=== PATIENT | male | born 1945 | race Caucasian/White ===

== ENCOUNTER → 2023-10-02 08:50 | Outpatient (REF) | payer MEDICARE, OTHER, SELFPAY | LOC: RAD 08:50 | PROVIDERS: ATTENDING PHYSICIAN Internal Medicine Critical Care Medicine; FAMILY PHYSICIAN Family Medicine | DX: J84.10 Pulmonary fibrosis, unspecified (principal) | CPT/HCPCS: 71046 ==

== ENCOUNTER → 2023-12-04 07:54 | Outpatient (REF) | payer MEDICARE, OTHER, SELFPAY ==
[2023-12-04 08:47] LABS: % Basophils 1.2 % (0-2); % Eosinophils 2.5 % (0-6); % Immature Granulocytes 0.4 % (0-0.5); % Lymphocytes 17.6 % (20.5-51.1); % Monocytes 9.2 % (1.7-9.3); % Neutrophils 69.1 % (42.2-75.2); Absolute Basophils 0.1 10^3/uL (0-0.2); Absolute Eosinophils 0.2 10^3/uL (0-0.7); Absolute Lymphocytes 1.5 10^3/uL (1.2-3.4); Absolute Monocytes 0.8 10^3/uL (0.1-0.6); Absolute Neutrophils 5.9 10^3/uL (1.4-6.5); Hematocrit 46.5 % (39.0-52.0); Hemoglobin 15.6 g/dL (13.0-18.0); Mean Corp Hgb Conc. 33.5 g/dL (33.0-37.0); Mean Corpuscular Hgb 32.6 pg (27.0-31.0); Mean Corpuscular Volume 97.1 fL (80.0-94.0); Nucleated Red Blood Cells % 0 % (-); Platelet Count 159 10^3/uL (130-400); Red Blood Cell Count 4.79 10^6/uL (4.70-6.10); Red Cell Dist. Width 12.8 % (11.5-14.5); White Blood Cell Count 8.5 10^3/uL (4.8-10.8)
[2023-12-04 09:36] LABS: Vitamin D, 25-OH*** 44.7 ng/mL (30-80)
[2023-12-04 09:37] LABS: ALT (SGPT) 28 U/L (0-50); AST (SGOT) 35 U/L (17-59); Albumin 4.3 g/dl (3.5-5.0); Alkaline Phosphatase 81 U/L (38-126); Blood Urea Nitrogen 25 mg/dl (9-20); Calcium 9.7 mg/dl (8.4-10.2); Carbon Dioxide 27 mmol/L (22-30); Chloride 106 mmol/L (98-107); Glucose 100 mg/dl (70-99); Potassium 4.4 mmol/L (3.5-5.1); Sodium 139 mmol/L (135-145); Total Bilirubin 0.5 mg/dl (0.2-1.3); Total Cholesterol 133 mg/dl (50-199); Total Protein 7.6 g/dl (6.3-8.2); Triglyceride 67 mg/dl (10-149); Uric Acid 7.5 mg/dl (3.5-8.5); Very Low Density Lipoprotein 13 mg/dl (0-30); eGFR > 60.00
[2023-12-04 09:50] LABS: TSH 2.18 uIU/ml (0.47-4.68)
[2023-12-04 10:09] LABS: Vitamin B12 715 pg/ml (239-931)
[2023-12-04 11:41] LABS: HDL Cholesterol 58 mg/dl; LDL Cholesterol, Calculated 62 mg/dl
== END ==
LOC: REG 07:54
PROVIDERS: ATTENDING PHYSICIAN Podiatrist; FAMILY PHYSICIAN Family Medicine
DX: M10.9 Gout, unspecified (principal); J84.112 Idiopathic pulmonary fibrosis; I25.10 Atherosclerotic heart disease of native coronary artery without angina pectoris; I10 Essential (primary) hypertension; C43.9 Malignant melanoma of skin, unspecified; I25.2 Old myocardial infarction; E78.00 Pure hypercholesterolemia, unspecified; Z79.899 Other long term (current) drug therapy
CPT/HCPCS: 36415; 80053; 80061; 82306; 82607; 84443; 84550; 85025

== ENCOUNTER → 2024-10-04 07:09 | Outpatient (REF) | payer MEDICARE, OTHER, SELFPAY | LOC: RST 07:09 | PROVIDERS: ATTENDING PHYSICIAN Internal Medicine Cardiovascular Disease; FAMILY PHYSICIAN Family Medicine; OTHER PHYSICIAN Internal Medicine Critical Care Medicine | DX: I25.10 Atherosclerotic heart disease of native coronary artery without angina pectoris (principal); J84.10 Pulmonary fibrosis, unspecified; K21.9 Gastro-esophageal reflux disease without esophagitis; R13.10 Dysphagia, unspecified | CPT/HCPCS: 74230; 92611; 93306 ==

== ENCOUNTER → 2024-10-25 07:03 | Outpatient (REF) | payer MEDICARE, OTHER, SELFPAY | LOC: HWRCS 07:03 | PROVIDERS: ATTENDING PHYSICIAN Internal Medicine Cardiovascular Disease; FAMILY PHYSICIAN Family Medicine | DX: I25.10 Atherosclerotic heart disease of native coronary artery without angina pectoris (principal); I42.9 Cardiomyopathy, unspecified | CPT/HCPCS: 78452; 93017; A9500 ==

== ENCOUNTER → 2025-02-07 06:36 | Outpatient (REF) | payer MEDICARE, OTHER, SELFPAY ==
[2025-02-07 08:49] LABS: Glycohemoglobin (HgbA1c) 5.3 % (4.0-5.6)
[2025-02-07 09:14] LABS: ALT (SGPT) 25 U/L (0-50); AST (SGOT) 28 U/L (17-59); Albumin 4.5 g/dl (3.5-5.0); Alkaline Phosphatase 72 U/L (38-126); Blood Urea Nitrogen 22 mg/dl (9-20); Calcium 9.4 mg/dl (8.4-10.2); Carbon Dioxide 25 mmol/L (22-30); Chloride 108 mmol/L (98-107); Glucose 84 mg/dl (70-99); HDL Cholesterol 55 mg/dl; LDL Cholesterol, Calculated 77 mg/dl; Potassium 4.6 mmol/L (3.5-5.1); Sodium 142 mmol/L (135-145); Total Bilirubin 0.9 mg/dl (0.2-1.3); Total Cholesterol 145 mg/dl (50-199); Total Protein 7.6 g/dl (6.3-8.2); Triglyceride 69 mg/dl (10-149); Very Low Density Lipoprotein 13 mg/dl (0-30); eGFR > 60.00
== END ==
LOC: REG 06:36
PROVIDERS: ATTENDING PHYSICIAN Internal Medicine Cardiovascular Disease; FAMILY PHYSICIAN Family Medicine
DX: I10 Essential (primary) hypertension (principal); E78.00 Pure hypercholesterolemia, unspecified; R73.01 Impaired fasting glucose; I25.10 Atherosclerotic heart disease of native coronary artery without angina pectoris
CPT/HCPCS: 36415; 80053; 80061; 83036

== ENCOUNTER 2025-06-05 12:15 | Emergency (ER) | payer MEDICARE, OTHER, SELFPAY ==
[2025-06-05 12:27] VITALS: BP 156/82
[2025-06-05 13:22] VITALS: BMI 21.9
[2025-06-05 14:07] LABS: Hematocrit 43.0 % (39.0-52.0); Hemoglobin 14.9 g/dL (13.0-18.0); Mean Corp Hgb Conc. 34.7 g/dL (33.0-37.0); Mean Corpuscular Volume 93.1 fL (80.0-94.0); Nucleated Red Blood Cells % 0 % (-); Platelet Count 154 10^3/uL (130-400); Red Cell Dist. Width 13.1 % (11.5-14.5)
[2025-06-05 14:23] LABS: Blood Urea Nitrogen 24 mg/dl (9-20); Calcium 9.2 mg/dl (8.4-10.2); Carbon Dioxide 25 mmol/L (22-30); Chloride 106 mmol/L (98-107); Estimated Creatinine Clearance 74 ml/min; Glucose 93 mg/dl (70-99); Potassium 4.5 mmol/L (3.5-5.1); Sodium 140 mmol/L (135-145); eGFR > 60.00
--- NOTE | 2025-06-05 14:25 | ED.GENMED ---
History of Present Illness
General
Chief Complaint: Heart Rate Problem
Source: patient and spouse
Time Seen by Provider: 06/05/25 13:15
History of Present Illness
History of Present Illness:
Note:
CHIEF COMPLAINT(S)
Pulmonary symptoms and concern for extra heartbeats.
HISTORY OF PRESENT ILLNESS
The patient is an 80-year-old male with a history of previous cardiac evaluations, presenting with cough. States that he went to urgent care and he was advised to come here for evaluation due to PVCs found on the EKG. The patient reports noticing
extra heartbeats ('extra beats') which were noted during a visit to PCP. He denies current palpitations or chest pain but mentions occasional coughing primarily in the mornings. He has not experienced a significant increase in the frequency of these
symptoms. The patients cardiology follow-up is scheduled for next month. He is generally well and denies feeling unwell. There are no symptoms of chest discomfort during the visit. Discussion included reassurance about the benign nature of premature
ventricular contractions (PVCs) unless associated with other abnormalities such as electrolyte imbalances.
Additional historian
states patient has an appointment with pulmonology next week
SOCIAL DETERMINANTS AFFECTING HEALTH
Patient is frequently outdoors, leading to possible over-exposure to allergens.
REVIEW OF SYSTEMS
- Cardiovascular: Denies current palpitations or chest pain.
- Respiratory: Occasional coughing, mainly in the mornings.
- General: No significant change in health status; feels well overall.
PHYSICAL EXAM
General: Alert, no acute distress.
Skin: Warm, dry.
Head: Normocephalic, atraumatic.
Neck: Supple, trachea midline.
Eye Ears, Nose, Mouth and Throat: Oral mucosa moist.
Cardiovascular: Regular heart rate, no murmurs, normal sinus rhythm on monitor, without PVCs.
Respiratory: Lungs clear on auscultation bilaterally.
Gastrointestinal: Abdomen nondistended.
Back: Normal range of motion, normal alignment.
Musculoskeletal: Normal range of motion, normal strength.
Neurological: Alert and oriented to person, place, time, and situation, no focal neurological deficit observed.
Psychiatric: Cooperative, appropriate mood & affect.
PROBLEM LIST
Acute Problems:
- Pulmonary symptoms, predominantly coughing in the mornings.
- Noted extra heartbeats during a previous cardiology evaluation.
PLAN
1. Conduct basic laboratory tests to assess for electrolyte imbalances.
2. Perform a chest X-ray to rule out any underlying pulmonary conditions.
3. Consider trial of [id number] antihistamines such as Montse or Claritin, given the patients frequent exposure to outdoor allergens.
4. 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
DIFFERENTIAL DIAGNOSIS
The Differential Diagnosis includes, in no particular order and is not limited to:
1. Allergic rhinitis contributing to pulmonary symptoms.
2. Exercise-induced pulmonary issues.
3. Premature ventricular contractions.
4. Electrolyte imbalances.
5. Upper respiratory tract infection.
6. Asthma.
7. Chronic obstructive pulmonary disease.
8. Heart rhythm disorders.
9. Heart failure.
10. Pneumonia.
Disposition:
SUMMARY OF ENCOUNTER
The patient is an 80-year-old male who presented to the emergency department at the advice of urgent care due to observation of premature ventricular contractions (PVCs) on an electrocardiogram (EKG). The patient is asymptomatic regarding chest pain
or palpitations but reports a chronic cough, which he attributes to his known history of pulmonary fibrosis. 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 In the emergency department, the patients clinical
examination revealed rare PVCs. Basic Metabolic Panel (BMP) and Complete Blood Count (CBC) were normal. A chest X-ray indicated no acute changes but showed chronic pulmonary fibrosis. EKG performed showed few PVCs but was otherwise consistent with
normal sinus rhythm.
ASSESSMENT
The patients symptoms and test results are consistent with chronic pulmonary fibrosis and asymptomatic PVCs, which do not appear to require acute intervention.
PLAN
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
INDEPENDENT REVIEW OF LABS AND INTERPRETATION OF TESTS
My independent review of BMP is normal.
My independent review of CBC is normal.
My independent interpretation of the chest X-ray shows no acute findings but restricted evidence of chronic pulmonary fibrosis.
My independent interpretation of the EKG indicates few PVCs but otherwise normal sinus rhythm.
MEDICAL DECISION MAKING
-Complexity of Data Reviewed: Chronic conditions affecting care, including history of pulmonary fibrosis and asymptomatic PVCs. Differential diagnosis considerations included allergic rhinitis, exercise-induced pulmonary issues, premature
ventricular contractions, electrolyte imbalances, upper respiratory tract infection, asthma, chronic obstructive pulmonary disease, heart rhythm disorders, heart failure, and pneumonia.
-Data:
Category 1
The emergency department obtained and reviewed BMP, CBC, chest X-ray, and EKG results. These supported the diagnosis of chronic pulmonary fibrosis and PVCs without acute findings.
-Risk:
Prescription medication was not prescribed, and outpatient management is deemed safe due to the patients stable condition and reassurance from normal test results.
Consideration of Admission/Observation: Escalation of care including admission/observation was considered given the complexity and risk of the patients presenting complaint, exam findings, and his underlying comorbidities. However, ultimately, the
patient is considered safe for outpatient management with close follow-up. Reasoning: Work-up is reassuring, it does not reveal any acute life/organ threatening processes, patients symptoms are well controlled upon reevaluation, reexamination is
reassuring, vitals are stable, patient is agreeable with discharge, and reliable for follow-up.
Care significantly affected by Social Determinants of Health: Frequent exposure to outdoor allergens due to working environment.
DIAGNOSIS
1. Pulmonary fibrosis, chronic (ICD-10: J84.10)
2. Premature ventricular contractions, asymptomatic (ICD-10: I49.3)
Past History
Social History
Tobacco: Non-smoker
Employment: Employed
Phy Exam
Physical Exam
Physical Exam:
.
Course
Orders/Labs/Results
Orders:
Orders
06/05/25 12:29
ECG [Electrocardiogram (*1)] Urgent
Reason for Study: Palpitations
EKG- Treatment ONCE
06/05/25 13:28
CR Chest - 2 Views Urgent
Comment:
Reason For Exam: cough, h/o pulm fib
06/05/25 13:57
Basic Metabolic Panel Urgent
Complete Blood Count/With Diff Urgent
Abnormal Lab Results
06/05/25
13:57
RBC 4.62 L 10^6/uL
(4.70-6.10)
MCH 32.3 H pg
(27.0-31.0)
MPV 11.6 H fL
(7.4-10.4)
Absolute Monos (auto) 1.0 H 10^3/uL
(0.1-0.6)
Lymphocytes % 18.7 L %
(20.5-51.1)
Monocytes % 12.6 H %
(1.7-9.3)
BUN 24 H mg/dl
(9-20)
06/05/25 13:57
06/05/25 13:57
Vital Signs
Initial and Last Documented VS:
Initial Vital Signs
Temp Pulse Resp BP Pulse Ox
98.7 F 86 18 156/82 96
06/05/25 12:27 06/05/25 12:27 06/05/25 12:27 06/05/25 12:27 06/05/25 12:27
Last Documented Vital Signs
Temp Pulse Resp BP Pulse Ox
98.7 F 79 29 156/82 96
06/05/25 12:27 06/05/25 14:00 06/05/25 14:00 06/05/25 12:27 06/05/25 14:31
*Pulse Oximetry
SaO2: 96
Oxygen Mode of Delivery: Room air
Patient hypoxic: no
*EKG
Interpreted by ED Provider?: Yes
Interpretation: abnormal
Rate: normal
Rhythm: sinus and PVC's
[place]: normal axis
Interval: normal interval
QRS Pattern: normal QRS
Ischemia: no ischemia
*Horse Racing Analyst Interpretation
Rate: normal
Interpretation: normal
Rhythm: sinus
*Critical Care Note
Total Time (30-74mins, 75-104mins- exclusive of procedures): Not Applicable
ED Attending Note
-
Portions of this chart may have been created with voice recognition software.� Occasional wrong word or��sound alike� substitutions may have occurred due to the inherent limitations of voice recognition software.
Discharge Plan
Departure
Patient Disposition: Home (Routine Discharge)
Date of Disposition: 06/05/25
Time of Disposition: 14:25
Patient with high blood pressure during this ER visit?: Yes
Discharge Problem:
Asymptomatic premature ventricular contractions, Chronic fibrosis of lung
Instructions: Ventricular premature beats, BLOOD PRESSURE
Prescriptions:
No Action
tramadol 50 MG tablet
25 - 50 mg PO Q6HPRN PRN (Reason: severe pain/breakthrough pain) Qty: 10 0RF
Referrals:
UNKNOWN - PT DOES,NOT KNOW [Family Provider]
Activity Restrictions/Additional Instructions:
Consider taking daily antihistamines as discussed. Please see your armature rewinder as planned in the next 1 week. Return today for fevers, shortness of breath, lightheadedness, passing out episode or any other concerns.
Interventions
Interventions:
*Risk Screen - Suicide Last Done: 06/05/25 12:27
*General Assessment Last Done: 06/05/25 13:22
*Neglect/Abuse Screening Last Done: 06/05/25 13:22
*ED- Fall Risk Assessment Last Done: 06/05/25 14:43
*ED COVID-19 Vaccine History Last Done: 06/05/25 13:22
*ED Influenza Vaccine History Last Done: 06/05/25 13:22
*Nursing Disposition Last Done: 06/05/25 14:43
ED- Cardiac Assessment Last Done: 06/05/25 13:22
ED- Pulmonary Assessment Last Done: 06/05/25 13:22
Discharge Date and Time
Discharge Date/Time: 06/05/25 14:44
Print Language: KHMER
== END 2025-06-05 14:44 | disposition home or self-care (01) ==
LOC: EMR 12:15
PROVIDERS: EMERGENCY PHYSICIAN Emergency Medicine
DX: J84.10 Pulmonary fibrosis, unspecified (principal); I49.3 Ventricular premature depolarization
CPT/HCPCS: 99285; 71046; 80048; 85025; 93005

== ENCOUNTER → 2025-06-23 08:40 | Outpatient (REF) | payer MEDICARE, OTHER, SELFPAY ==
[2025-06-23 09:45] LABS: Hematocrit 43.1 % (39.0-52.0); Hemoglobin 14.5 g/dL (13.0-18.0); Mean Corp Hgb Conc. 33.6 g/dL (33.0-37.0); Mean Corpuscular Volume 94.9 fL (80.0-94.0); Nucleated Red Blood Cells % 0 % (-); Platelet Count 195 10^3/uL (130-400); Red Cell Dist. Width 12.7 % (11.5-14.5)
[2025-06-23 12:13] LABS: ALT (SGPT) 19 U/L (0-50); AST (SGOT) 29 U/L (17-59); Albumin 4.0 g/dl (3.5-5.0); Alkaline Phosphatase 72 U/L (38-126); Blood Urea Nitrogen 21 mg/dl (9-20); Calcium 9.0 mg/dl (8.4-10.2); Carbon Dioxide 26 mmol/L (22-30); Chloride 102 mmol/L (98-107); Glucose 95 mg/dl (70-99); HDL Cholesterol 39 mg/dl; LDL Cholesterol, Calculated 61 mg/dl; Potassium 4.2 mmol/L (3.5-5.1); Sodium 139 mmol/L (135-145); Total Protein 7.3 g/dl (6.3-8.2); Very Low Density Lipoprotein 16 mg/dl (0-30); eGFR > 60.00
[2025-06-23 12:40] LABS: Vitamin D, 25-OH*** 37.5 ng/mL (30-80)
[2025-06-23 12:54] LABS: PSA, Total - Screen 4.79 ng/ml (0.0-4.0); TSH 2.09 uIU/ml (0.47-4.68)
[2025-06-23 13:10] LABS: Glycohemoglobin (HgbA1c) 5.7 % (4.0-5.9)
[2025-06-23 13:11] LABS: Vitamin B12 848 pg/ml (239-931)
== END ==
LOC: REG 08:40
PROVIDERS: ATTENDING PHYSICIAN Family Medicine
DX: I10 Essential (primary) hypertension (principal); E78.00 Pure hypercholesterolemia, unspecified; R35.1 Nocturia; N40.1 Benign prostatic hyperplasia with lower urinary tract symptoms; Z79.899 Other long term (current) drug therapy; Z12.5 Encounter for screening for malignant neoplasm of prostate
CPT/HCPCS: 36415; 80053; 80061; 82306; 82607; 83036; 84443; 85025; G0103

== ENCOUNTER → 2025-06-27 11:35 | Outpatient (REF) | payer MEDICARE, OTHER, SELFPAY | LOC: HWRAD 11:35 | PROVIDERS: ATTENDING PHYSICIAN Internal Medicine Critical Care Medicine; FAMILY PHYSICIAN Family Medicine | DX: J84.10 Pulmonary fibrosis, unspecified (principal) | CPT/HCPCS: 71250 ==

== ENCOUNTER 2025-08-14 18:58 | Inpatient (IN) | payer MEDICARE, OTHER, SELFPAY ==
[2025-08-14 17:00] VITALS: BP 144/79
[2025-08-14 17:06] VITALS: BP 144/79
[2025-08-14 17:15] LABS: Hematocrit 43.8 % (39.0-52.0); Hemoglobin 15.1 g/dL (13.0-18.0); Mean Corp Hgb Conc. 34.5 g/dL (33.0-37.0); Mean Corpuscular Volume 92.0 fL (80.0-94.0); Nucleated Red Blood Cells % 0 % (-); Platelet Count 142 10^3/uL (130-400); Red Cell Dist. Width 13.9 % (11.5-14.5)
[2025-08-14 17:31] LABS: COVID-19 Antigen Negative (Negative)
--- NOTE | 2025-08-14 17:33 | ED.GENMED ---
History of Present Illness
General
Chief Complaint: Weakness
Source: patient, spouse and ambulance crew
Exam Limitations: none
Time Seen by Provider: 08/14/25 17:31
Nursing documentation reviewed up to this point in time: agreed with
History of Present Illness
History of Present Illness:
80-year-old male presents emergency department due to weakness and cough. He has had worsening weakness throughout the day. It did begin somewhat yesterday. He denies any fevers. He has a history of pulmonary fibrosis, and is not usually on
oxygen. He has not been hospitalized for it per patient and .
Past History
Past History
ED Past Medical History: HTN, Hypercholesterolemia and Other (Pulmonary fibrosis)
ED Past Surgical History: Cardiac (Cardiac stent) and Orthopedic (Left shoulder)
Social History
Tobacco: Former smoker
Alcohol: Daily
Drug: None
Personal:
Living: with family
Employment: Employed
Review of Systems
Review of Systems
Allergies reviewed?: Yes
All Other Systems: Not applicable
Constitutional: Reports no symptoms
EENT: Reports no symptoms
Respiratory: Reports cough and trouble breathing
Cardiac: Reports no symptoms
ABD/GI: Reports no symptoms
: Reports no symptoms
Musculoskeletal: Reports no symptoms
Skin: Reports no symptoms
Neurological: Reports weakness
Endocrine: Reports no symptoms
Hematologic/Lymphatic: Reports no symptoms
Psychiatric: Reports no symptoms
Phy Exam
Physical Exam
Physical Exam:
Physical Exam
General: afebrile, appears uncomfortable
Neck: supple. no meningeal signs. normal posterior pharynx
Heart: s1/s2 regular rate and rhythm, no murmur. equal radial
pulses.
HEENT: Pupils equal round reactive to light, EOMI
Lungs: mild respiratory distress. clear bilaterally, cough
Abdomen: normal bowel sounds. not tender. no CVAT
Neuro: alert and oriented. no focal neurological deficits cranial nerves II through XII intact
Skin: no rash
Psychiatric: well kept. interactive and cooperative
Extremities: no edema. no calf tenderness. negative homans. good distal pulses
Course
Orders/Labs/Results
Orders:
Orders
08/14/25 Dinner
Cholesterol Lowering
At Your Request: Full Participation
08/14/25 17:02
Electrocardiogram (*1) Urgent
Reason for Study: Shortness of Breath
EKG- Treatment ONCE
CR Chest - 2 Views Urgent
Comment:
Reason For Exam: weakness, hypoxia
08/14/25 17:05
COVID-19 Antigen Urgent
Source: Nasal Swab
Complete Blood Count/With Diff Urgent
Comprehensive Metabolic Panel Urgent
Pro-BNP [NT-proBNP] Urgent
Influenza A+B Rapid Molecular Urgent
MARY ELLEN Source: Nasal Swab
Specimen Description:
08/14/25 17:50
IV Insert/Care/Rem.- Treatment PRN
0.9% Sodium Chloride 1000 ml [Nss] 1,000 ml IV BOLUS
Oseltamivir Phosphate [Tamiflu] 75 mg PO NOW STA
08/14/25 18:04
Admit/Transfer Patient As Directed
Co-Sign Provider:
Level of Care: Inpatient admission
Assign to:: Medical/Surgical
Physician / Group: Lauren
Diagnosis: Acute hypoxia, Influenza
Reason for Hospitalization: Oxygen, Tamiflu, PT
Expected length of stay greater than two midnights?: Yes
ELOS- Estimated Length of Stay in days: 2
I certify the patient meets the requirements for IP care: Yes
PRN Pain Medication Management As Directed
May give lesser potent ordered pain med per pt: Yes
preference::
Protocol:: Medication orders for pain may be administered in a
manner that supports deferring to patient preference
when the pt is:
- Requesting an ordered lesser potent pain medication.
Least to most potent pain medications are defined
as: acetaminophen < NSAID < tramadol < opioids
(morphine, oxycodone, hydromorphone).
- Requesting a lesser dose of the same medication IF
ORDERED.
- Requesting a less intrusive route of administration
if both routes are prescribed by the provider (PO <
IV).
08/14/25 18:05
Code Status As Directed
Resuscitation Status: Full Code
08/14/25 18:23
Acetaminophen [Tylenol] 650 mg .ROUTE .STK-MED ONE
08/14/25 18:24
Acetaminophen [Tylenol] 650 mg PO NOW STA
08/14/25 19:29
Acetaminophen [Tylenol] 650 mg PO Q6HPRN PRN
08/14/25 19:29
Activity As Directed
Activity Level: With Assistance
Ot Eval And Treat Routine
Pt Eval And Treat Routine
Activity Level: Ambulate
DX Deep Vein Thrombosis Video Routine
08/14/25 20:00
Metoprolol Xl [Toprol Xl] 25 mg PO BID
08/15/25 08:00
Aspirin Low Dose EC [Aspir Low (Enteric Coated)] 81 mg PO DAILY
Azithromycin [Zithromax] 250 mg PO MOWEFR
Magnesium Oxide 400 mg PO DAILY
Multivitamin [Theragran] 1 tablet PO DAILY
Oseltamivir Phosphate [Tamiflu] 75 mg PO BID
Pantoprazole [Protonix] 40 mg PO DAILY
Valsartan [Diovan] 160 mg PO DAILY
08/15/25 18:00
Enoxaparin Sodium [Lovenox] 40 mg SC QPM
Rosuvastatin Calcium [Crestor] 40 mg PO QPM
Abnormal Lab Results
08/14/25
17:05
MCH 31.7 H pg
(27.0-31.0)
MPV 11.6 H fL
(7.4-10.4)
Absolute Lymphs (auto) 0.3 L 10^3/uL
(1.2-3.4)
Absolute Monos (auto) 0.9 H 10^3/uL
(0.1-0.6)
Neutrophils % 83.5 H %
(42.2-75.2)
Lymphocytes % 3.7 L %
(20.5-51.1)
Monocytes % 11.7 H %
(1.7-9.3)
Sodium 133 L mmol/L
(135-145)
Glucose 145 H mg/dl
(70-99)
08/14/25 17:05
08/14/25 17:05
Vital Signs
Initial and Last Documented VS:
Initial Vital Signs
BP
144/79
08/14/25 17:00
Last Documented Vital Signs
Temp Pulse Resp BP Pulse Ox
99.1 F 86 18 135/76 100
08/14/25 23:30 08/14/25 23:30 08/14/25 23:30 08/14/25 23:30 08/14/25 23:30
MDM/Problems Addressed
Differential Diagnosis Includes:
Pneumonia, influenza
MDM/Problems Addressed:
80-year-old male with hypoxia, pulmonary fibrosis, influenza A. Weakness. Admit to hospitalist for further treatment.
Chronic conditions affecting care: Other (Pulmonary fibrosis)
Acute Exacerbation and/or Progression of Chronic Illness: Other (Pulmonary fibrosis)
*Radiology
Radiology exam reviewed: radiology read reviewed (cxr: bibasilar pneumonia)
*Pulse Oximetry
SaO2: 95
Nasal Cannula flow liters per minute: 2
Oxygen Mode of Delivery: Room air
Patient hypoxic: yes
*Critical Care Note
Total Time (30-74mins, 75-104mins- exclusive of procedures): Not Applicable
ED Attending Note
-
Portions of this chart may have been created with voice recognition software.� Occasional wrong word or��sound alike� substitutions may have occurred due to the inherent limitations of voice recognition software.
Discharge Plan
Departure
Patient Disposition: Admit
Date of Disposition: 08/14/25
Time of Disposition: 17:52
Admit to: Telemetry
Presentation/result/management discussed w/ accepting MD/DO: Hospitalist
Patient with high blood pressure during this ER visit?: Yes
Condition: Fair
Discharge Problem:
Influenza A, Hypoxia, Weakness
Interventions
Interventions:
*General Assessment Last Done: 08/14/25 17:06
*Neglect/Abuse Screening Last Done: 08/14/25 17:06
*ED COVID-19 Vaccine History Last Done: 08/14/25 19:22
*ED Influenza Vaccine History Last Done: 08/14/25 17:06
[facility] Fall Risk Assessment Tool Last Done: 08/14/25 17:22
*Risk Screen - Suicide (C-SSRS) Last Done: 08/14/25 17:06
*Nursing Disposition Last Done: 08/14/25 19:22
ED- Cardiac Assessment Last Done: 08/14/25 17:22
ED- Neurological Assessment Last Done: 08/14/25 17:22
ED- Pulmonary Assessment Last Done: 08/14/25 17:22
Discharge Date and Time
Discharge Date/Time: 08/14/25 19:22
[2025-08-14 17:35] LABS: ALT (SGPT) 22 U/L (0-50); AST (SGOT) 40 U/L (17-59); Albumin 4.5 g/dl (3.5-5.0); Alkaline Phosphatase 71 U/L (38-126); Blood Urea Nitrogen 18 mg/dl (9-20); Calcium 9.6 mg/dl (8.4-10.2); Carbon Dioxide 25 mmol/L (22-30); Chloride 100 mmol/L (98-107); Glucose 145 mg/dl (70-99); Potassium 4.5 mmol/L (3.5-5.1); Sodium 133 mmol/L (135-145); Total Protein 8.1 g/dl (6.3-8.2); eGFR > 60.00
[2025-08-14 18:00] VITALS: BP 143/76
--- NOTE | 2025-08-14 18:09 | HPS.HSE ---
Family Physician
-
Family Physician:
Chief Complaint
-
Weakness, cough, shortness of breath
History of Present Illness
80-year-old male here accompanied by his for complaints of increasing cough, shortness of breath, weakness. Symptoms started on Friday.
Patient himself is a very limited and poor historian. Information gathered by speaking with his .
Medical History
Past Medical History
Past Medical History: Reports Other
Additional Past Medical History:
Idiopathic pulmonary fibrosis
CAD
Inferior wall HI
Umbilical hernia�repaired with mesh
BPH
Essential hypertension
Osteoarthritis
GERD
Hyperlipidemia
Malignant melanoma
Anxiety/depression
Past Surgical History: Reports Appendectomy, Orthopedic and Other
Additional Past Surgical History:
Open left inguinal hernia repair with mesh
Pilonidal cyst
Left shoulder surgery
Left hand carpal tunnel repair
Social History
Tobacco: Former Smoker
Alcohol: Occasional
Drug: None
Personal:
Living: With Family
Employment: Not Employed
Family History
Family History: Not pertinent
Allergies / Home Medications
Allergies reflects when Allergies were last updated in [employer].
Home Medications with original date entered in [employer]
Allergy/Medication List:
Allergies
Allergy/AdvReac Type Severity Reaction Status Date / Time
No Known Allergies Allergy Verified 08/14/25 17:03
Home Medications
Rosuvastatin 40 mg daily
Multivitamin 1 tablet daily
Toprol XL 25 mg twice daily
Azithromycin 250 mg 1 tab Friday
Aspirin 81 mg daily
Valsartan/HCTZ 160/12.51 tablet daily
Magnesium 500 mg once daily
Omeprazole 20 mg daily
Review of Systems
-
History Source: Patient and Family
A 12 point ROS was completed and negative except as noted: Yes
Constitutional: Reports Fatigue
Respiratory: Reports Cough and Trouble Breathing
Physical Exam
Vital Signs
Vital Signs
Temp Pulse Resp BP Pulse Ox
98.6 F 94 24 144/79 95
08/14/25 17:06 08/14/25 17:15 08/14/25 17:15 08/14/25 17:06 08/14/25 17:45
Physical Exam
General: Well Developed, Well Nourished, No Apparent Distress and Comfortable
HEENT: NormoCephalic, Anicteric and Moist mucous membranes
Respiratory: Rhonchi
Cardiac: S1/S2 and Regular Rhythm
GI: Soft, Non Tender and Non Distended
Genito-urinary: Deferred by me
Musculoskeletal: No Clubbing, No Cyanosis and No Edema
Skin: Warm and Dry
Neuro: Awake, Alert and Nonfocal/grossly intact
Hematologic/Lymphatic: No Lymphadenopathy
Psych: Calm
Laboratory Results
-
08/14/25 17:05
08/14/25 17:05
Laboratory Results
Total Bilirubin 0.8 mg/dl (0.2-1.3) 08/14/25 17:05
AST 40 U/L (17-59) 08/14/25 17:05
ALT 22 U/L (0-50) 08/14/25 17:05
Alkaline Phosphatase 71 U/L (38-126) 08/14/25 17:05
Impression/Plan
-
Acute hypoxic respiratory failure -due to acute influenza infection in the setting of chronic interstitial lung disease. Oxygenation is currently stable on 2 L nasal cannula. Not on oxygen at home.
Admit to MedSurg.
Acute influenza A infection -unclear why he is not vaccinated. Initiate Tamiflu. Recommend vaccination yearly in May, discussed with .
CAD -with history of HI and prior stenting. Continue GDMT.
Hyponatremia -stop hydrochlorothiazide.
Essential hypertension -resume home meds with the exception of hydrochlorothiazide.
Interstitial lung disease -follows with Dr. Ratliff.
Hyperlipidemia -rosuvastatin.
History of melanoma
BPH
GERD
Former smoker
Depression/anxiety
Full code
Updated at the bedside.
[2025-08-14] MEDS: TAMIFLU 75 MG PO (18:16)
[2025-08-14] MEDS: NSS 1000 IV (18:17)
[2025-08-14] MEDS: TYLENOL 650 MG PO (18:24)
[2025-08-14 19:40] VITALS: BP 135/76; BMI 22.5
--- NOTE | 2025-08-14 19:53 | PTCARENOTE ---
Pt arrived to unit AAO3, ambulated from stretcher to bed with RW, steady gait, on bed alarm, call swift in reach, bed locked, in lowest position, cooperative with admit process.
[2025-08-14] MEDS: TOPROL XL 25 MG PO (21:23)
[2025-08-14 23:30] VITALS: BP 135/76
--- NOTE | 2025-08-15 08:21 | W.PN.HOSP.TC ---
Addendum entered and electronically signed by Heriberto Mcpherson MD 08/15/25 15:34:
Updated over the phone today. She asks for pulm eval and reassured her we asked for consult.
Original Note:
Today's Communication/Plan
-
Pulmonary eval
Assessment / Plan
Assessment / Plan
Physical exam:
General: Acutely ill
HEENT: Normocephalic, Atraumatic and Moist Mucous Membranes
Respiratory: Coarse rhonchi; Negative Wheezes, Rales
Cardiac: Regular Rhythm and S1/S2
GI: Soft, Nontender and Nondistended
Musculoskeletal: No Clubbing, No Cyanosis and No Edema
Neuro: Awake, Alert and Oriented, no neurological deficit
Psych: Calm
A/P:
Acute hypoxic respiratory failure -due to acute influenza infection in the setting of chronic interstitial lung disease. Oxygenation is currently stable on 2 L nasal cannula. Not on oxygen at home.
Pulmonary consult.
Acute influenza A infection -unclear why he is not vaccinated. Continue Tamiflu. Dr. Aguilar recommended vaccination yearly in May, discussed with .
CAD -with history of NH and prior stenting. Continue GDMT.
Hyponatremia -stop hydrochlorothiazide. Follow-up sodium
Essential hypertension -resume home meds with the exception of hydrochlorothiazide.
Interstitial lung disease -follows with Dr. Ratliff.
Hyperlipidemia -rosuvastatin.
History of melanoma
BPH
GERD
Former smoker
Depression/anxiety
Full code
Total time spent on today's encounter was 36 minutes which included time spent in counseling the patient/family regarding diagnosis and treatment plan as listed above, goals of care, and symptom management. Case was discussed with nursing staff,
specialists, and care coordinators/case management. All labs and imaging personally reviewed by me. Remainder the time spent in detailed review of previous records, lab data, imaging, and other medical provider documentation.
Anticipated Discharge: 24 - 48 hours
Subjective/Interval History
-
Date of Service: August 15, 2025
Patient continues to have cough and shortness of breath. Afebrile
Objective Data
-
Vital Signs:
Vital Signs
Temp Pulse Resp BP Pulse Ox
99.1 F 86 18 135/76 100
08/14/25 23:30 08/14/25 23:30 08/14/25 23:30 08/14/25 23:30 08/14/25 23:30
I&O
08/14/25 08/15/25 08/16/25
06:59 06:59 06:59
Intake Total 240 / 240
Output Total 200 / 200 400 / 400
Balance -200 / -200 -160 / -160
[2025-08-15 08:50] VITALS: BP 137/81
[2025-08-15] MEDS: THERAGRAN 1 TABLET PO (09:05)
[2025-08-15] MEDS: PROTONIX 40 MG PO (09:06)
[2025-08-15] MEDS: DIOVAN 160 MG PO (09:06)
[2025-08-15] MEDS: TAMIFLU 75 MG PO ×2 (09:06→20:10)
[2025-08-15] MEDS: ZITHROMAX 250 MG PO (09:06)
[2025-08-15] MEDS: MAGNESIUM OXIDE 400 MG PO (09:06)
[2025-08-15] MEDS: TOPROL XL 25 MG PO ×2 (09:06→20:10)
[2025-08-15] MEDS: ASPIR LOW (ENTERIC COATED) 81 MG PO (09:07)
[2025-08-15 09:24] VITALS: BP 132/68; PULSE 74; O2SAT 94
[2025-08-15 09:25] VITALS: BP 132/68; PULSE 80; O2SAT 97
--- NOTE | 2025-08-15 11:27 | CON.PUL ---
Consultation
Consultation Request
Date/Time Consultation Requested: 08/15/2025 - 1001
Date/Time Consultation Performed: 08/15/2025 - 1100
Requesting Provider: Dr. Mcpherson
Performing Provider: Dr. Shultz
Reason for Consultation: SOB/Flu A
Medical History
-
Chief Complaint: Weakness + cough
History of Present Illness:
80-year-old male former tobacco smoker with a past medical history of pulmonary fibrosis, chronic cough, GERD, hypertension, anxiety, depression, ICM, CAD with history of PCI/stents to RCA/PDA (2006), BPH, DJD, and history of malignant melanoma who
presents with cough, weakness and shortness of breath. His symptoms started the day prior, and continued to worsen. Patient is a poor historian so information gathered by chart. In the ER patient was afebrile, pulse rate 99, respiratory rate 26,
BP 144/79 and he was saturating 92% on room air. Patient is not usually on oxygen at home. Patient found to be influenza A positive on flu swab. Other pertinent labs showed a serum sodium of 133, proBNP 1520, and COVID-19 antigen negative. CXR
showed concern for bibasilar pneumonia (L >R) superimposed on chronic interstitial lung disease. Patient was given 1 L NS 0.9% in the ER + Tylenol and Tamiflu, and admitted to the Hospitalist service. Pulmonary service now consulted for additional
management/recommendations.
PMHx: Pulmonary fibrosis, chronic cough, GERD, hypertension, anxiety, depression, ICM, CAD with history of PCI/stents to RCA/PDA (2006), BPH, DJD, history of malignant melanoma
PSHx: Coronary cath, appendectomy, shoulder surgery, pilonidal cyst, open left inguinal hernia repair with mesh, left hand carpal tunnel surgery
Past Medical History
Past Medical History: Other (Above as per HPI)
Past Surgical History: Other (Above as per HPI)
Social History
Tobacco: Former Smoker ([id number] history, quit in 1977)
Alcohol: Occasional
Drug: None
Personal:
Living: With Family
Family History
Family History: Other (Mother: Alzheimer's dementia; daughter: Liver transplant (unknown reason))
Allergies / Home Medications
Allergies
Allergy/AdvReac Type Severity Reaction Status Date / Time
No Known Allergies Allergy Verified 08/14/25 17:03
Home Medications
�Medication �Instructions �Recorded �Confirmed �Last Taken �Type
aspirin 81 mg tablet 81 mg PO DAILY Blood Clot 08/14/25 08/14/25 Unknown History
Prevention/Tx
azithromycin 250 mg tablet 250 mg PO MOWEFR Infection 08/14/25 08/14/25 Unknown History
coenzyme Q10 100 mg capsule 100 mg PO DAILY Supplement 08/14/25 08/14/25 Unknown History
cyanocobalamin (vitamin B-12) 1,000 mcg PO DAILY Supplement 08/14/25 08/14/25 Unknown History
1,000 mcg tablet
doxepin 10 mg/mL oral concentrate 10 mg PO HSPRN PRN sleep 08/14/25 08/14/25 Unknown History
magnesium glycinate 100 mg (as 400 mg PO DAILY Supplement 08/14/25 08/14/25 Unknown History
glycinate) tablet
metoprolol succinate 25 mg 25 mg PO BID Blood Pressure 08/14/25 08/14/25 Unknown History
tablet,extended release 24 hr
omeprazole 20 mg capsule,delayed 20 mg PO DAILY Gastrointestinal 08/14/25 08/14/25 Unknown History
release Issue
rosuvastatin 40 mg tablet 40 mg PO DAILY High Cholesterol 08/14/25 08/14/25 Unknown History
taurine 500 mg capsule 500 mg PO DAILY Supplement 08/14/25 08/14/25 Unknown History
therapeutic multivitamin 1 tab PO DAILY Supplement 08/14/25 08/14/25 Unknown History
valsartan 160 1 tab PO DAILY Blood Pressure 08/14/25 08/14/25 Unknown History
mg-hydrochlorothiazide 12.5 mg
tablet
Review of Systems
-
Unable to Obtain full review of systems at this time due to: Acuity
Vitals / Labs / Diagnostic Testing
Vital Signs
Temp Pulse Resp BP Pulse Ox
99.6 F 92 14 137/81 97
08/15/25 08:50 08/15/25 09:06 08/15/25 08:50 08/15/25 09:06 08/15/25 08:50
Lab Data
08/14/25 17:05
08/14/25 17:05
Microbiology
08/14/25 17:05 Nasal Swab Influenza Types A & B (YI) - Final
Influenza A Positive, NAAT
Diagnostic Testing:
Physical Exam
-
HEENT: Normocephalic and Anicteric
Cardiovascular: S1/S2 and Peripheral Edema (n)
Respiratory: Wheeze (n), Rales (Bilateral), Rhonchi (Bilateral) and Non-Labored Respirations
GI: Soft, Non Distended, Non Tender and Normal Bowel Sounds
Neurology: Awake, Alert and Tremors (n)
Skin: Warm and Dry
General: Respiratory Distress (n), Comfortable, Fever (n) and Chills (n)
Assessment
-
Assessment: 80-year-old male former tobacco smoker with a past medical history of pulmonary fibrosis, chronic cough, GERD, hypertension, anxiety, depression, ICM, CAD with history of PCI/stents to RCA/PDA (2006), BPH, DJD, and history of malignant
melanoma who presents with cough, weakness and shortness of breath. His symptoms started the day prior, and continued to worsen. Patient is a poor historian so information gathered by chart. In the ER patient was afebrile, pulse rate 99,
respiratory rate 26, BP 144/79 and he was saturating 92% on room air. Patient is not usually on oxygen at home. Patient found to be influenza A positive on flu swab. Other pertinent labs showed a serum sodium of 133, proBNP 1520, and COVID-19
antigen negative. CXR showed concern for bibasilar pneumonia (L >R) superimposed on chronic interstitial lung disease. Patient was given 1 L NS 0.9% in the ER + Tylenol and Tamiflu, and admitted to the Hospitalist service. Pulmonary service now
consulted for additional management/recommendations.
Chronic conditions HISTORICAL GUIDE: Pulmonary fibrosis, chronic cough, GERD, hypertension, anxiety, depression, ICM, CAD with history of PCI/stents to RCA/PDA (2006), BPH, DJD, history of malignant melanoma
Impression:
#Influenza A pneumonia
#Acute respiratory failure with hypoxia due to above
#Pulmonary fibrosis (UIP pattern) - worsened interstitial changes compared to prior imaging in September 2021
#CAD with history of stents to RCA/PDA
#Chronic HFrEF (LVEF: 35% via echo on 10/04/2024)
#GERD
#Chronic cough due to ILD
#Anxiety/depression
#History of malignant melanoma
Plan:
- Patient has been experiencing worsening shortness of breath + cough, found to have influenza A with suspected bacterial superinfection likely involving his left lower lobe
- Patient has baseline pulmonary fibrosis with bullous disease
- He is a former tobacco smoker, with a [id number] history, quit in 1977
- Continue with Tamiflu for 5-10 days, depending on his clinical course
- Continue his Zithromax (home medication)
- PPI
- Given his WBC is normal and he is afebrile, hold off on antibiotics for now and continue to closely observe; trend WBC and monitor temperature curve
- If patient spikes fever then would panculture and start broad-spectrum antibiotics at that
- Maintain SpO2 >90-94% with supplemental O2, weaning down as tolerated
- Aspiration precautions, keeping HOB >30-45�
- If O2 requirements worsen, low threshold to start high flow nasal cannula, and would also start broad-spectrum antibiotics in that scenario
- prn nebulized bronchodilators - not currently bronchospastic
- Incentive spirometer encouraged q1hr while awake
- Replete electrolytes with K>4, Mg>2
- Trend H/H and transfuse if needed to keep Hb>7g/dL; keep plt>20k, unless there is concern for bleeding then keep plt>50k
- Maintain euglycemia with goal BG >100 and <180
- PT/OT once he is stable
- DVT ppx: LMWH
Pulmonary service will continue to follow along.
Data:
Transthoracic Echocardiogram 10/04/2024:
Normal left ventricular chamber size. Normal wall thickness. Moderately
reduced left ventricular systolic function. LV ejection fraction is 35%
visually. Global hypokinesis. Stage I diastolic dysfunction suggestive of
abnormal relaxation.
Tricuspid valve opens normally. Mild tricuspid regurgitation. Estimated
pulmonary artery pressure of 37 mmHg. Assuming a right atrial pressure of 3
mmHg.
Since echo 08/26/22 which was reviewed, EF has decreased from 40-45% to 35%.
Total time spent today was 58 minutes for this encounter. Time includes reviewing laboratory test/imaging results, reviewing pertinent medical records, obtaining and reviewing medical history, performing an appropriate exam, ordering medications,
tests and procedures. Time also includes documentation of this encounter, coordinating patient care and communicating with other healthcare professionals. Total time does not include separately billed tests performed on this date of service.
--- NOTE | 2025-08-15 13:16 | CM ---
CM reviewed chart. Patient seen bedside. Initial Assessment completed.
Patient is an 80-year-old male here accompanied by his for complaints of increasing cough, shortness of breath, weakness. Positive for influenza.
Patient lives with in a two story home. Bedroom on first floor. Two steps to enter.
Patient still works and drives.
Patient has no devices. Patient never had home care or nursing.
Patient is currently on O2, but has not used O2 in the past.
to transport home when ready.
PCP is Nas Leyva
Pharmacy is [facility]
Patient has insurance and prescription coverage.
CM to continue to follow for discharge needs.
Plan: discharge home; follow for discharge needs.
[2025-08-15 15:50] VITALS: BP 124/70
[2025-08-15 16:50] VITALS: BP 124/70
[2025-08-15] MEDS: LOVENOX 40 MG SC (17:41)
[2025-08-15] MEDS: CRESTOR 40 MG PO (17:41)
[2025-08-15 23:30] VITALS: BP 143/69
[2025-08-16 07:00] VITALS: BP 138/68
[2025-08-16] MEDS: PROTONIX 40 MG PO (07:54)
[2025-08-16] MEDS: TOPROL XL 25 MG PO ×2 (07:54→20:04)
[2025-08-16] MEDS: MAGNESIUM OXIDE 400 MG PO (07:54)
[2025-08-16] MEDS: DIOVAN 160 MG PO (07:54)
[2025-08-16] MEDS: ASPIR LOW (ENTERIC COATED) 81 MG PO (07:54)
[2025-08-16] MEDS: THERAGRAN 1 TABLET PO (07:55)
[2025-08-16] MEDS: TAMIFLU 75 MG PO ×2 (07:55→20:03)
--- NOTE | 2025-08-16 08:50 | W.PN.HOSP.TC ---
Today's Communication/Plan
-
Tamiflu. Antibiotics.
Assessment / Plan
Assessment / Plan
Physical exam:
General: Acutely ill
HEENT: Normocephalic, Atraumatic and Moist Mucous Membranes
Respiratory: Coarse rhonchi; Negative Wheezes, Rales
Cardiac: Regular Rhythm and S1/S2
GI: Soft, Nontender and Nondistended
Musculoskeletal: No Clubbing, No Cyanosis and No Edema
Neuro: Awake, Alert and Oriented, no neurological deficit
Psych: Calm
A/P:
Acute hypoxic respiratory failure -due to acute influenza infection in the setting of chronic interstitial lung disease. Possible left lower lobe community-acquired pneumonia. Oxygenation is currently stable on 2 L nasal cannula. Not on oxygen at
home. Pulmonary consult appreciated and okay continue with home doses of oral azithromycin for bacterial superimposed infection. Discussed with at bedside today.
Acute influenza A infection -unclear why he is not vaccinated. Continue Tamiflu. Dr. Aguilar recommended vaccination yearly in May, discussed with .
CAD -with history of [place] and prior stenting. Continue GDMT.
Hyponatremia -stop hydrochlorothiazide. Sodium back up to 134 today
Essential hypertension -resume home meds with the exception of hydrochlorothiazide.
Interstitial lung disease -follows with Dr. Ratliff and seen by Dr. Shultz during this hospital stay.
Hyperlipidemia -rosuvastatin.
History of melanoma
BPH
GERD
Former smoker
Depression/anxiety
Full code
Total time spent on today's encounter was 35 minutes which included time spent in counseling the patient/family regarding diagnosis and treatment plan as listed above, goals of care, and symptom management. Case was discussed with nursing staff,
specialists, and care coordinators/case management. All labs and imaging personally reviewed by me. Remainder the time spent in detailed review of previous records, lab data, imaging, and other medical provider documentation.
Anticipated Discharge: Within 24 hours
Subjective/Interval History
-
Date of Service: August 16, 2025
Patient still having some cough and shortness of breath although overall improved. Afebrile
Objective Data
-
Labs:
Laboratory Results
08/16/25
08:26
WBC Pending
Hgb Pending
Hct Pending
Plt Count Pending
Sodium Pending
Potassium Pending
Chloride Pending
Carbon Dioxide Pending
BUN Pending
Creatinine Pending
Glucose Pending
Calcium Pending
Vital Signs:
Vital Signs
Temp Pulse Resp BP Pulse Ox
97.6 F 67 16 138/68 92
08/16/25 07:00 08/16/25 07:54 08/16/25 07:00 08/16/25 07:54 08/16/25 07:00
I&O
08/15/25 08/16/25 08/17/25
06:59 06:59 06:59
Intake Total 1020 / 1020
Output Total 200 / 200 400 / 400
Balance -200 / -200 620 / 620
[2025-08-16 09:07] LABS: Hematocrit 47.9 % (39.0-52.0); Hemoglobin 16.2 g/dL (13.0-18.0); Mean Corp Hgb Conc. 33.8 g/dL (33.0-37.0); Mean Corpuscular Volume 95.2 fL (80.0-94.0); Nucleated Red Blood Cells % 0 % (-); Platelet Count 122 10^3/uL (130-400); Red Cell Dist. Width 13.8 % (11.5-14.5)
[2025-08-16 09:30] LABS: Blood Urea Nitrogen 18 mg/dl (9-20); Calcium 9.0 mg/dl (8.4-10.2); Carbon Dioxide 24 mmol/L (22-30); Chloride 100 mmol/L (98-107); Estimated Creatinine Clearance 79 ml/min; Glucose 80 mg/dl (70-99); Potassium 3.9 mmol/L (3.5-5.1); Sodium 134 mmol/L (135-145); eGFR > 60.00
--- NOTE | 2025-08-16 10:11 | W.PN.PUL3 ---
Today's Communication / Plan
-
Tamiflu
Supportive care
Up OOB as tolerated
Supplemental O2 with goal sats >90%
Home O2 assessment prior to discharge
Pulmonary service will continue to briefly follow along
Assessment
-
Assessment: 80-year-old male former tobacco smoker with a past medical history of pulmonary fibrosis, chronic cough, GERD, hypertension, anxiety, depression, ICM, CAD with history of PCI/stents to RCA/PDA (2006), BPH, DJD, and history of malignant
melanoma who presents with cough, weakness and shortness of breath. His symptoms started the day prior, and continued to worsen. Patient is a poor historian so information gathered by chart. In the ER patient was afebrile, pulse rate 99,
respiratory rate 26, BP 144/79 and he was saturating 92% on room air. Patient is not usually on oxygen at home. Patient found to be influenza A positive on flu swab. Other pertinent labs showed a serum sodium of 133, proBNP 1520, and COVID-19
antigen negative. CXR showed concern for bibasilar pneumonia (L >R) superimposed on chronic interstitial lung disease. Patient was given 1 L NS 0.9% in the ER + Tylenol and Tamiflu, and admitted to the Hospitalist service. Pulmonary service now
consulted for additional management/recommendations.
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
Impression:
#Influenza A pneumonia
#Acute respiratory failure with hypoxia due to above
#Pulmonary fibrosis (UIP pattern) - worsened interstitial changes compared to prior imaging in September 2021
#CAD with history of stents to RCA/PDA
#Chronic HFrEF (LVEF: 35% via echo on 10/04/2024)
#GERD
#Chronic cough due to ILD
#Anxiety/depression
#History of malignant melanoma
Plan:
- Patient has been experiencing worsening shortness of breath + cough, found to have influenza A with suspected bacterial superinfection likely involving his left lower lobe
- Patient has baseline pulmonary fibrosis with bullous disease
- He is a former tobacco smoker, with a [id number] history, quit in 1977
- Continue with Tamiflu for 5-10 days, depending on his clinical course
- Continue his Zithromax (home medication)
- PPI
- Given his WBC is normal and he is afebrile, hold off on antibiotics for now and continue to closely observe; trend WBC and monitor temperature curve
- If patient spikes fever then would panculture and start broad-spectrum antibiotics at that
- Maintain SpO2 >90-94% with supplemental O2, weaning down as tolerated
- Aspiration precautions, keeping HOB >30-45�
- If O2 requirements worsen, low threshold to start high flow nasal cannula, and would also start broad-spectrum antibiotics in that scenario
- prn nebulized bronchodilators - not currently bronchospastic
- Incentive spirometer encouraged q1hr while awake
- Replete electrolytes with K>4, Mg>2
- Trend H/H and transfuse if needed to keep Hb>7g/dL; keep plt>20k, unless there is concern for bleeding then keep plt>50k
- Maintain euglycemia with goal BG >100 and <180
- PT/OT once he is stable
- DVT ppx: LMWH
Pulmonary service will continue to follow along.
Data:
Transthoracic Echocardiogram 10/04/2024:
Normal left ventricular chamber size. Normal wall thickness. Moderately
reduced left ventricular systolic function. LV ejection fraction is 35%
visually. Global hypokinesis. Stage I diastolic dysfunction suggestive of
abnormal relaxation.
Tricuspid valve opens normally. Mild tricuspid regurgitation. Estimated
pulmonary artery pressure of 37 mmHg. Assuming a right atrial pressure of 3
mmHg.
Since echo 08/26/22 which was reviewed, EF has decreased from 40-45% to 35%.
Total time spent today was 37 minutes for this encounter. Time includes reviewing laboratory test/imaging results, reviewing pertinent medical records, obtaining and reviewing medical history, performing an appropriate exam, ordering medications,
tests and procedures. Time also includes documentation of this encounter, coordinating patient care and communicating with other healthcare professionals. Total time does not include separately billed tests performed on this date of service.
Subjective Data
-
Date of Service:
Date of Service: August 16, 2025
Chief Complaint: Pulmonary Follow Up
Subjective:
patient seen today at bedside. Currently on 3 L/min nasal cannula. No acute events reported from overnight.
Patient seen and evaluated on 08/16/2025
Review of Systems
General: Other ( negative unless mentioned above)
Objective Data
Data Reviewed
Vital Signs / I&O / Oxygen:
Vital Signs
Temp Pulse Resp BP Pulse Ox
97.6 F 67 16 138/68 92
08/16/25 07:00 08/16/25 07:54 08/16/25 07:00 08/16/25 07:54 08/16/25 07:00
Intake and Output
08/15/25 08/16/25 08/17/25
06:59 06:59 06:59
Intake Total 1020 / 1020
Output Total 200 / 200 400 / 400
Balance -200 / -200 620 / 620
SaO2 92
Nasal Cannula flow liters per 4
minute
Physical Exam
General: Respiratory Distress (n), Comfortable and Chills (n)
HEENT: Normocephalic and Anicteric
Cardiovascular: S1-S2 and Peripheral Edema (n)
Respiratory: Wheeze (n), Rhonchi (n), Non-Labored Respirations, Other ( coarse breath sounds heard bilaterally) and Other ( diminished breath sounds bilaterally)
GI: Soft and Non Distended
Neurology: Awake and Tremors (n)
Skin: Warm and Good Color
Labs/Micro/Reports
Lab Data
08/16/25 08:26
08/16/25 08:26
Microbiology
08/14/25 17:05 Nasal Swab Influenza Types A & B (YI) - Final
Influenza A Positive, NAAT
[2025-08-16 10:56] VITALS: PULSE 72; O2SAT 95
[2025-08-16 15:00] VITALS: BP 107/62
[2025-08-16] MEDS: CRESTOR 40 MG PO (18:01)
[2025-08-16] MEDS: LOVENOX 40 MG SC (18:01)
[2025-08-16] MEDS: FLUSH (NSS) 1 FLUSH IV (20:04)
[2025-08-16 23:00] VITALS: BP 114/57
[2025-08-17 07:00] VITALS: BP 138/60
[2025-08-17] MEDS: ZITHROMAX 250 MG PO (08:49)
[2025-08-17] MEDS: TOPROL XL 25 MG PO (08:49)
[2025-08-17] MEDS: PROTONIX 40 MG PO (08:49)
[2025-08-17] MEDS: TAMIFLU 75 MG PO (08:49)
[2025-08-17] MEDS: DIOVAN 160 MG PO (08:49)
[2025-08-17] MEDS: ASPIR LOW (ENTERIC COATED) 81 MG PO (08:50)
[2025-08-17] MEDS: MAGNESIUM OXIDE 400 MG PO (08:50)
[2025-08-17] MEDS: THERAGRAN 1 TABLET PO (08:50)
[2025-08-17 10:30] VITALS: O2SAT 93
--- NOTE | 2025-08-17 11:01 | W.PN.HOSP.TC ---
Today's Communication/Plan
-
Discharge planning today
Assessment / Plan
Assessment / Plan
Physical exam:
General: Chronically ill. No acute distress
HEENT: Normocephalic, Atraumatic and Moist Mucous Membranes
Respiratory: Coarse rhonchi; Negative Wheezes, Rales
Cardiac: Regular Rhythm and S1/S2
GI: Soft, Nontender and Nondistended
Musculoskeletal: No Clubbing, No Cyanosis and No Edema
Neuro: Awake, Alert and Oriented, no neurological deficit
Psych: Calm
A/P:
Acute hypoxic respiratory failure -due to acute influenza infection in the setting of chronic interstitial lung disease. Possible left lower lobe community-acquired pneumonia. Oxygenation is currently stable on 2 L nasal cannula. Not on oxygen at
home. Pulmonary consult appreciated and okay continue with home doses of oral azithromycin for bacterial superimposed infection. Discussed with at bedside today. Needs home oxygen. Discussed with CM and planning d/c today.
Acute influenza A infection -unclear why he is not vaccinated. Continue Tamiflu. Dr. Aguilar recommended vaccination yearly in May, discussed with .
CAD -with history of CT and prior stenting. Continue GDMT.
Hyponatremia -stop hydrochlorothiazide. Sodium back up to 134 today
Essential hypertension -resume home meds with the exception of hydrochlorothiazide.
Interstitial lung disease -follows with Dr. Ratliff and seen by Dr. Shultz during this hospital stay.
Hyperlipidemia -rosuvastatin.
History of melanoma
BPH
GERD
Former smoker
Depression/anxiety
Full code
Total time spent on today's encounter was 35 minutes which included time spent in counseling the patient/family regarding diagnosis and treatment plan as listed above, goals of care, and symptom management. Case was discussed with nursing staff,
specialists, and care coordinators/case management. All labs and imaging personally reviewed by me. Remainder the time spent in detailed review of previous records, lab data, imaging, and other medical provider documentation.
Anticipated Discharge: Today
Subjective/Interval History
-
Date of Service: August 17, 2025
Feels well, less sob and cough. Needs oxygen.
Objective Data
-
Vital Signs:
Vital Signs
Temp Pulse Resp BP Pulse Ox
98.7 F 66 16 138/60 93
08/17/25 07:00 08/17/25 08:49 08/17/25 07:00 08/17/25 08:49 08/17/25 08:15
I&O
08/16/25 08/17/25 08/18/25
06:59 06:59 06:59
Intake Total 1020 / 1020 240 / 240
Output Total 400 / 400 150 / 150
Balance 620 / 620 90 / 90
--- NOTE | 2025-08-17 11:05 | W.DCSUMMARY ---
Discharge Summary
Discharge Data
Date of Admission: 08/14/25
Date of Discharge: 08/17/25
Total time spent discharging patient (in min): 35
-
Pending Results: No
Hospital Course
Patient 80 years old male with history of pulmonary fibrosis, GERD, hypertension, depression, anxiety, ischemic cardiomyopathy, CAD, BPH, DJD, melanoma in the past, came into the hospital with cough and shortness of breath. He was found to have
influenza A. He was also found to have positive community-acquired superimposed pneumonia. Patient was treated with Tamiflu and he was kept on his oral azithromycin. Pulmonary was consulted. Patient did well rest of hospital stay. He improved
symptomatically from respiratory standpoint. He has remained hemodynamically stable and afebrile. He did require oxygen upon discharge so home oxygen arrangements have been made. He will follow-up with pulmonary as outpatient and at that time
they will check a 6-minute walk test and reassess oxygen needs. Patient will be discharged in relative stable condition today.
Discharge duration: 35 minutes
Discharge Plan
-
Patient Disposition: Home (Routine Discharge)
Discharge Diagnosis/Procedures: Acute hypoxic respiratory failure. Influenza A. Interstitial lung disease. Left lower lobe community-acquired pneumonia. Hyponatremia.
Diet: Low Cholesterol
Activity: As tolerated
Blood Work: Please PCP to order CBC, BMP within 1 week
Referrals:
Nas Leyva MD [Family Provider, Family Practice] - in less than 1 week
Jesus Sampson MD [Active, Pulmonary Medicine] - 09/26/25 12:00 pm
Prescriptions:
New
valsartan 160 mg tablet
160 mg PO DAILY Qty: 30 0RF
oseltamivir 75 mg Capsule
75 mg PO BID 3 Days Qty: 6 0RF
Continued
cyanocobalamin (vitamin B-12) 1,000 mcg Tablet
1,000 mcg PO DAILY
therapeutic multivitamin Tablet
1 tab PO DAILY
omeprazole 20 mg capsule,delayed release(DR/EC)
20 mg PO DAILY
aspirin 81 mg Tablet
81 mg PO DAILY
metoprolol succinate 25 mg tablet extended release 24 hr
25 mg PO BID
taurine 500 mg Capsule
500 mg PO DAILY
coenzyme Q10 100 mg Capsule
100 mg PO DAILY
rosuvastatin 40 mg tablet
40 mg PO DAILY
magnesium glycinate 100 mg Tablet
400 mg PO DAILY
azithromycin 250 mg tablet
250 mg PO MOWEFR
doxepin 10 mg/mL concentrate
10 mg PO HSPRN PRN (Reason: sleep)
Discontinued
valsartan-hydrochlorothiazide 160-12.5 mg tablet
1 tab PO DAILY
Discharge Orders:
Discharge Patient (As Directed); Ordered 08/17/25
Ordered By: Heriberto Mcpherson
Discharge Date and Time
Discharge Date/Time: 08/17/25 13:18
Print Language: POLISH
--- NOTE | 2025-08-17 11:10 | W.PN.PUL3 ---
Today's Communication / Plan
-
Tamiflu x 5-10 days
Supportive care
Up OOB as tolerated
Supplemental O2 with goal sats >90%
Home O2 assessment today (08/17) showed he requires 3 L/min with activity, room air at rest - -> will see in office to check 6MWT to reassess O2 needs
Patient is being prepared for discharge home today. No additional recommendations at this time. Pulmonary service will now sign off. Please reconsult if there are any additional questions/concerns, or if patient's respiratory status deteriorates.
Assessment
-
Assessment: 80-year-old male former tobacco smoker with a past medical history of pulmonary fibrosis, chronic cough, GERD, hypertension, anxiety, depression, ICM, CAD with history of PCI/stents to RCA/PDA (2006), BPH, DJD, and history of malignant
melanoma who presents with cough, weakness and shortness of breath. His symptoms started the day prior, and continued to worsen. Patient is a poor historian so information gathered by chart. In the ER patient was afebrile, pulse rate 99,
respiratory rate 26, BP 144/79 and he was saturating 92% on room air. Patient is not usually on oxygen at home. Patient found to be influenza A positive on flu swab. Other pertinent labs showed a serum sodium of 133, proBNP 1520, and COVID-19
antigen negative. CXR showed concern for bibasilar pneumonia (L >R) superimposed on chronic interstitial lung disease. Patient was given 1 L NS 0.9% in the ER + Tylenol and Tamiflu, and admitted to the Hospitalist service. Pulmonary service now
consulted for additional management/recommendations.
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
Impression:
#Influenza A pneumonia
#Acute respiratory failure with hypoxia due to above
#Pulmonary fibrosis (UIP pattern) - worsened interstitial changes compared to prior imaging in September 2021
#CAD with history of stents to RCA/PDA
#Chronic HFrEF (LVEF: 35% via echo on 10/04/2024)
#GERD
#Chronic cough due to ILD
#Anxiety/depression
#History of malignant melanoma
Plan:
- Patient had been experiencing worsening shortness of breath + cough, found to have influenza A with suspected bacterial superinfection likely involving his left lower lobe
- Patient has baseline pulmonary fibrosis with bullous disease
- Former tobacco smoker, with a [id number] history, quit in 1977
- Continue with Tamiflu for 5-10 days, depending on his clinical course
- Continue his Zithromax (home medication)
- PPI
- Given his WBC is normal and he is afebrile, hold off on antibiotics for now and continue to closely observe; trend WBC and monitor temperature curve
- If patient spikes fever then would panculture and start broad-spectrum antibiotics at that
- Maintain SpO2 >90-94% with supplemental O2, weaning down as tolerated (now on room air as of 08/17/2025)
- Aspiration precautions, keeping HOB >30-45�
- If O2 requirements worsen, low threshold to start high flow nasal cannula, and would also start broad-spectrum antibiotics in that scenario - this does not seem to be of concern at this point given he is continuing to improve
- Home O2 assessment performed today showing he needs 3 L/min NC with activity (and room air at rest); lucille O2 saturation with activity was: 83%
- prn nebulized bronchodilators - not currently bronchospastic
- Incentive spirometer encouraged q1hr while awake
- Replete electrolytes with K>4, Mg>2
- Trend H/H and transfuse if needed to keep Hb>7g/dL; keep plt>20k, unless there is concern for bleeding then keep plt>50k
- Maintain euglycemia with goal BG >100 and <180
- PT rec'd outpatient therapy; OT does not recommend any OT needs postdischarge
- DVT ppx: LMWH
Patient is being prepared for discharge home today. No additional recommendations at this time. Pulmonary service will now sign off. Thank you for allowing us to be involved in the care of this patient. Please reconsult if there are any
additional questions/concerns, or if patient's respiratory status deteriorates.
Data:
Transthoracic Echocardiogram 10/04/2024:
Normal left ventricular chamber size. Normal wall thickness. Moderately
reduced left ventricular systolic function. LV ejection fraction is 35%
visually. Global hypokinesis. Stage I diastolic dysfunction suggestive of
abnormal relaxation.
Tricuspid valve opens normally. Mild tricuspid regurgitation. Estimated
pulmonary artery pressure of 37 mmHg. Assuming a right atrial pressure of 3
mmHg.
Since echo 08/26/22 which was reviewed, EF has decreased from 40-45% to 35%.
Total time spent today was 26 minutes for this encounter. Time includes reviewing laboratory test/imaging results, reviewing pertinent medical records, obtaining and reviewing medical history, performing an appropriate exam, ordering medications,
tests and procedures. Time also includes documentation of this encounter, coordinating patient care and communicating with other healthcare professionals. Total time does not include separately billed tests performed on this date of service.
Subjective Data
-
Date of Service:
Date of Service: August 17, 2025
Chief Complaint: Pulmonary Follow Up
Subjective:
Patient was on 2 L/min this morning and then weaned to room air. No acute events reported from overnight. Being prepared for discharge home today.
Review of Systems
General: Other (Negative unless mentioned above)
Objective Data
Data Reviewed
Vital Signs / I&O / Oxygen:
Vital Signs
Temp Pulse Resp BP Pulse Ox
98.7 F 66 16 138/60 93
08/17/25 07:00 08/17/25 08:49 08/17/25 07:00 08/17/25 08:49 08/17/25 07:00
Intake and Output
08/16/25 08/17/25 08/18/25
06:59 06:59 06:59
Intake Total 1020 / 1020 240 / 240
Output Total 400 / 400 150 / 150
Balance 620 / 620 90 / 90
SaO2 93
Nasal Cannula flow liters per 2
minute
Physical Exam
General: Respiratory Distress (n), Comfortable and Chills (n)
HEENT: Normocephalic and Anicteric
Cardiovascular: S1-S2 and Peripheral Edema (n)
Respiratory: Wheeze (n), Rhonchi (n), Non-Labored Respirations, Other (coarse breath sounds heard bilaterally) and Other ( diminished breath sounds bilaterally)
GI: Soft and Non Distended
Neurology: Awake and Tremors (n)
Skin: Warm and Good Color
Labs/Micro/Reports
Lab Data
08/16/25 08:26
08/16/25 08:26
Microbiology
08/14/25 17:05 Nasal Swab Influenza Types A & B (YI) - Final
Influenza A Positive, NAAT
[2025-08-17 12:48] VITALS: BP 130/55
--- NOTE | 2025-08-17 13:23 | CM ---
Addendum entered by Elsie Henderson 08/17/25 15:29:
Respiratory came back to see patient to discuss O2 recommendations, patient has already left.
Original Note:
CM and TUSHAR Henderson reviewed chart. Met with patient and patient's beside.
Script for outpatient PT/OT was given to patient's .
CM discussed with patient and patient's the need for patient to have home O2. Patient's stated they were told by respiratory and PT patient did not require 02. CM's discussed with patient it was documented patient required home 02 and his
level was 83 when ambulating. Patient's discussed how she was unhappy with being told different things by CM's and PT and Resp. Patient's asked if patient would need 02 the rest of his life. CM's discussed not knowing this answer and
patient needed to follow up with a pulley man. Patient's requested to speak to Resp and PT again as she wanted to hear from them that patient required home 02.
CM janett texted Resp and confirmed patient required home 02. Resp stated he would be up to see patient again in a little bit.
CM's went back and met with patient and patient's again. Nurse was present for discussion as she was waiting to take patient's IV out as patient and patient's were adamant it needed to be taken out right away so he would be able to get
dressed and leave.
Discussed how patient does need 02 and it would be delivered to the hospital and also the home. Discussed it would be delivered to the hospital prior to discharge in order for patient to have it for his trip home and to be taught how to use it.
Patient's asked how long it would take as she was not going to sit at the hospital any longer. Patient's stated she had already been here long enough and was here late last night and again early this morning. Patient's stated she was
hungry and she had [employer] and was unable to eat anything offered in the cafeteria.
CM explained it would most likely be a few hours before O2 arrived. Patient's asked if it could be delivered to the home and they were taught there. CM explained this is not likely and patient needs to leave it with in case he needed it while
walking into his home, etc. Patient's stated they would come back to the hospital tomorrow and get it. It was explained it needed to be done while patient was at the hospital and again reiterated the need for patient to have it in case he
needed it during his ride home.
Patient stated he could not believe all these rules. Patient's stated 'no one around here is willing to bend for them.' Patient's expressed her dissatisfaction with their entire experience at the hospital. Patient's stated they would
just call their doctor when they get home and request their doctor to prescribe the O2.
CM's asked patient and patient's what their decision was with regards to the O2. Patient stated they were not refusing it, but patient's stated they were not waiting and were leaving as soon as possible. It was explained they were refusing
O2 if they were not willing to wait and they confirmed they were leaving.
TUSHAR Henderson called O2 company and [employer] agreed to deliver O2 later today to patient's home even though it is not their preference and patient would be taught how to use O2.
CM went back to patient's room and had already left room to go and get the car. CM informed patient O2 would be delivered to their home and patient would be taught how to use it.
Patient then left in wheelchair.
== END 2025-08-17 13:18 | disposition home health service (06) | DRG 193 ==
LOC: 4 WEST ACU 18:58
PROVIDERS: Emergency Medicine; ADMITTING PHYSICIAN Hospitalist; ATTENDING PHYSICIAN Hospitalist; CONSULT PHYSICIAN Internal Medicine Critical Care Medicine; EMERGENCY PHYSICIAN Emergency Medicine; FAMILY PHYSICIAN Family Medicine
DX: J10.01 Influenza due to other identified influenza virus with the same other identified influenza virus pneumonia (principal); J96.01 Acute respiratory failure with hypoxia; E87.1 Hypo-osmolality and hyponatremia; I50.22 Chronic systolic (congestive) heart failure; Z87.891 Personal history of nicotine dependence; Z11.52 Encounter for screening for COVID-19; J10.1 Influenza due to other identified influenza virus with other respiratory manifestations; I11.0 Hypertensive heart disease with heart failure; F41.9 Anxiety disorder, unspecified; F32.A Depression, unspecified; J84.112 Idiopathic pulmonary fibrosis
CPT/HCPCS: 71046; 80048; 80053; 83880; 85025; 87502; 87811; 93005; 97163; 97166; 97530; 99285